=== PATIENT | female | born 1995 | race Caucasian/White ===

== ENCOUNTER 2017-12-07 16:58 | Emergency (ER) | payer OTHER ==
[2017-12-07 17:05] VITALS: BP 134/90; PULSE 110; RESP 18; TEMP 98
[2017-12-07] MEDS ORDERED: KETOROLAC 30 MG/ML 1 ML VIAL IM STA (17:41)
[2017-12-07] MEDS ORDERED: ORPHENADRINE 30 MG/ML 2 ML VIAL IM STA (17:42)
--- NOTE | 2017-12-07 18:25 | XR ---
EXAMINATION TYPE: XR thoracic spine complete DATE OF EXAM: 12/07/2017 COMPARISON: NONE HISTORY: Back pain TECHNIQUE: 3 views FINDINGS: Thoracic vertebra have normal alignment. Posterior elements are intact. There is no paraspi nal mass. There is no compression fracture. IMPRESSION: Normal thoracic spine.
--- NOTE | 2017-12-07 18:26 | XR ---
EXAMINATION TYPE: XR cervical spine limited DATE OF EXAM: 12/07/2017 COMPARISON: NONE HISTORY: Neck pain TECHNIQUE: 4 views FINDINGS: Cervical vertebra have normal spacing and alignment. Posterior elements are intact. [place] axial facet joint is normal. There are no cervical ribs. IMPRESSION: Normal cervical spine.
--- NOTE | 2017-12-07 18:40 | ED ---
General Adult HPI - General Chief complaint: Back Pain/Injury Stated complaint: [facility]-Back Injury Time Seen by Provider: 12/07/17 17:21 Source: patient, RN notes reviewed Mode of arrival: ambulatory Limitations: no limitations - History of Present Illness Initial comments: 22-year-old female presents to the emergency department for a chief complaint of neck pain 2 hours. Patient was at work when she lifted a in 80 pound crates above her head and felt a pain down her neck and back. Patient states she left work because of the pain. Patient states she can't move her neck much and that is where the pain is the worst. Patient denies falling or hitting her head. Patient denies any weakness in the limbs. Patient denies any numbness or tingling in the extremities. No bladder bowel changes. No saddle anesthesia. Patient has no other complaints at this time including shortness of breath, chest pain, abdominal pain, nausea or vomiting, headache, or visual changes. - Related Data Previous Rx's Medication Instructions Recorded Cyclobenzaprine [Flexeril] 5 mg PO TID #12 tablet 12/07/17 Ibuprofen [Motrin] 600 mg PO Q6HR PRN #20 tab 12/07/17 Allergies Allergy/AdvReac Type Severity Reaction Status Date / Time Sulfa (Sulfonamide Allergy Unknown Verified 12/07/17 17:05 Antibiotics) Review of Systems ROS Statement: Those systems with pertinent positive or pertinent negative responses have been documented in the HPI. ROS Other: All systems not noted in ROS Statement are negative. Past Medical History Past Medical History: No Reported History History of Any Multi-Drug Resistant Organisms: None Reported Past Surgical History: No Surgical Hx Reported Past Psychological History: No Psychological Hx Reported Smoking Status: Current every day smoker Past Alcohol Use History: Rare Past Drug Use History: Marijuana General Exam Limitations: no limitations General appearance: alert, in no apparent distress Head exam: Present: atraumatic, normocephalic, normal inspection Eye exam: Present: normal appearance, PERRL, EOMI. Absent: scleral icterus, conjunctival injection, nystagmus, periorbital swelling Pupils: Present: normal accommodation ENT exam: Present: normal exam, normal oropharynx, mucous membranes moist, TM's normal bilaterally, normal external ear exam Neck exam: Present: tenderness (Bilateral paraspinal and cervical tenderness), other (Patient's neck held in this asthmatic torticollis to the left). Absent: meningismus, full ROM (Patient has difficulty with range of motion of the neck has about 10 flexion and extension as well as about 10 of rotation bilaterally ) Respiratory exam: Present: normal lung sounds bilaterally. Absent: respiratory distress, wheezes, rales, rhonchi, stridor Cardiovascular Exam: Present: regular rate, normal rhythm, normal heart sounds. Absent: systolic murmur, diastolic murmur, rubs, gallop, clicks Extremities exam: Present: full ROM (Flexion 90 and abduction 90 of bilateral shoulders), normal capillary refill (Capillary refill less than 2 seconds and pedal pulse 2+ in upper extremities), other (sensation intact in upper and lower extremities. strength 5/5 in upper and lower extremities bilat. 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 No tenderness of the lumbar spine), paraspinal tenderness (Patient has significant right side paraspinal tenderness along the thoracic area). Absent: full ROM ( Patient has about 45 flexion and 10 extension of the low back.), CVA tenderness (R), CVA tenderness (L) Neurological exam: Present: alert, oriented X3, CN II-XII intact, normal gait. Absent: motor sensory deficit Psychiatric exam: Present: normal affect, normal mood Course Vital Signs 12/07/17 16:59 Temperature 98.0 F Pulse Rate 110 H Respiratory 18 Rate Blood Pressure 134/90 O2 Sat by Pulse 100 Oximetry Medical Decision Making - Medical Decision Making 22-year-old female presents to the emergency department for a chief complaint of back and neck pain 2 hours. Patient states the pain is mostly in her neck but also in her upper back. Patient was lifting something at work when she felt the pain in her neck and back. Patient's neck is held in spasmatic torticollis to the left. Patient does have some cervical spine tenderness as well as mild thoracic spine tenderness. Moderate paraspinal cervical tenderness. Moderate paraspinal tenderness to the right upper back. Patient has some limited range of motion of the lumbar spine but has no lumbar spine tenderness. Neurovascular intact in upper and lower extremities. Limited range motion of the cervical spine as well. Cervical vertebra have normal spacing and alignment. Normal cervical spine. Thoracic vertebra have no fractures. Normal thoracic spine. Given the nature of injury and patient's presentation of neck muscle spasm patient likely experiencing muscular pain in the back. She was given Toradol and Norflex in the emergency department and pain improved significantly. She will follow-up with primary care in 1-2 days. She will given be given Motrin and Flexeril. Patient aware to return to the emergency Department if she has any worsening symptoms. Disposition Clinical Impression: Neck muscle spasm, Paraspinal muscle spasm Disposition: HOME SELF-CARE Condition: Good Instructions: Spasmodic Torticollis (ED) Additional Instructions: Please take Motrin and Tylenol for pain. Take Flexeril as directed but do not drive or operate machinery with Flexeril. Return to the emergency department if you have any worsening symptoms. Otherwise follow-up with primary care in 1- 2 days. Prescriptions: Cyclobenzaprine [Flexeril] 5 mg PO TID #12 tablet Ibuprofen [Motrin] 600 mg PO Q6HR PRN #20 tab PRN Reason: Pain Is patient prescribed a controlled substance at d/c from ED?: No Referrals: Nonstaff,Physician [Primary Care Provider] - 1-2 days Time of Disposition: 18:39
== END 2017-12-07 18:49 | disposition home or self-care (01) ==
LOC: EC 16:58
DX: M62.838 Other muscle spasm (principal); F17.200 Nicotine dependence, unspecified, uncomplicated; Z88.2 Allergy status to sulfonamides
CPT/HCPCS: 72072; 72040; 99283; 96372 ×2; J2360; J1885